=== PATIENT | male | born 1980 | race Caucasian/White ===

== ENCOUNTER 2019-10-28 13:01 | Inpatient (IN) | payer OTHER ==
[2019-10-28] MEDS ORDERED: Ondansetron 4 MG/2 ML SDV IVPUSH ONE (13:21)
--- NOTE | 2019-10-28 13:29 | EDM.PDOC ---
ED HPI GENERAL MEDICAL PROBLEM - General Chief Complaint: Abdominal Pain Stated Complaint: ABD PAIN Time Seen by Provider: 10/28/19 13:17 Source of Information: Reports: Patient History Limitations: Reports: No Limitations - History of Present Illness INITIAL COMMENTS - FREE TEXT/NARRATIVE: pt has been well until last nite when he developed marked diarrhea. During the nite h started to vomit and he now is not holding water down. . He has pain in his rt lower abdoman which he rates at a 7. He has been healthy until last nite. [place] with [place] and they have all been eating the same foods and no one else is sick. Onset: Other ( started last nite. ) Duration: Hour(s): Location: Reports: Abdomen, Other (pt has chilled a little. ) Quality: Reports: Other (pain is there all of the time. ) Lower Abdomen Pain Score (Numeric/FACES): 7 - Related Data Allergies Allergy/AdvReac Type Severity Reaction Status Date / Time Penicillins Allergy Cannot Verified 10/28/19 13:15 Remember Home Meds: Home Meds NK [No Known Home Meds] 10/28/19 [History] ED ROS GENERAL - Review of Systems Review Of Systems: See Below Constitutional: Reports: Weakness, Decreased Appetite HEENT: Reports: No Symptoms Respiratory: Reports: No Symptoms Cardiovascular: Reports: No Symptoms Endocrine: Reports: No Symptoms GI/Abdominal: Reports: Abdominal Pain, Other (pt has pain in the rt lower abdoman. ) : Reports: No Symptoms Musculoskeletal: Reports: No Symptoms Skin: Reports: No Symptoms ED EXAM, GI/ABD - Physical Exam Exam: See Below Text/Narrative:: pt arrived with pain the lower abdoman. He got sick last nite and had alot of eisodes of nonbloody diarrhea. He then started to vomit and at this point he is not holding any fluids down. He has been eating the same thing as his family and no one else is ill. Exam Limited By: No Limitations General Appearance: Alert, Anxious, Moderate Distress Ears: Normal TMs Nose: Normal Inspection Throat/Mouth: Normal Inspection Head: Atraumatic Neck: Normal Inspection Respiratory/Chest: No Respiratory Distress Cardiovascular: Regular Rate, Rhythm GI/Abdominal Exam: Tender ( Pt has tenderness without rigid guarding in the rt lower abdoman and suprapupic area. He has not had a fever. ), Other (Male) Exam: Deferred Rectal (Males) Exam: Deferred Back Exam: Normal Inspection Extremities: Normal Inspection Neurological: Alert, Oriented, Normal Cognition Course - Vital Signs Last Recorded V/S: Last Vital Signs Temp 36.8 C 10/28/19 13:13 Pulse 55 L 10/28/19 15:14 Resp 14 10/28/19 15:14 BP 102/55 L 10/28/19 15:14 Pulse Ox 100 10/28/19 15:14 - Orders/Labs/Meds Orders: Active Orders 24 hr Category Date Time Status Iopamidol [Isovue-300 (61%)] Med 10/28/19 14:30 Active 92 ml IV . DIRECTED Sodium Chloride 0.9% [Normal Saline] 1,000 ml Med 10/28/19 13:30 Active IV ASDIRECTED Sodium Chloride 0.9% [Normal Saline] 1,000 ml Med 10/28/19 14:00 Active IV ASDIRECTED Sodium Chloride 0.9% [Normal Saline] 70 ml Med 10/28/19 14:30 Active IV ASDIRECTED Medication Orders Sodium Chloride (Normal Saline) 1,000 mls @ 999 mls/hr IV ASDIRECTED EDWAR Last Admin: 10/28/19 13:41 Dose: 999 mls/hr Documented by: PREILOR Sodium Chloride (Normal Saline) 1,000 mls @ 999 mls/hr IV ASDIRECTED EDWAR Sodium Chloride (Normal Saline) 70 mls @ 3.5 mls/sec IV ASDIRECTED EDWAR Last Admin: 10/28/19 14:48 Dose: 3 mls/sec Documented by: THIERRY Iopamidol (Isovue-300 (61%)) 92 ml IV . DIRECTED EDWAR Last Admin: 10/28/19 14:48 Dose: 92 ml Documented by: THIERRY Labs: Laboratory Tests 10/28/19 10/28/19 10/28/19 Range/Units 13:36 13:36 14:44 WBC 15.3 H (4.5-11.0) K/uL RBC 5.45 (4.30-5.90) M/uL Hgb 16.3 H (12.0-15.0) g/dL Hct 46.9 (40.0-54.0) % MCV 86 (80-98) fL MCH 30 (27-31) pg MCHC 35 (32-36) % Plt Count 228 (150-400) K/uL Neut % (Auto) 91 H (36-66) % Lymph % (Auto) 4 L (24-44) % [place] % (Auto) 5 (2-6) % Eos % (Auto) 0 L (2-4) % Baso % (Auto) 0 (0-1) % Sodium 140 (140-148) mmol/L Potassium 4.0 (3.6-5.2) mmol/L Chloride 102 (100-108) mmol/L Carbon Dioxide 30 (21-32) mmol/L Anion Gap 8.3 (5.0-14.0) mmol/L BUN 14 (7-18) mg/dL Creatinine 0.9 (0.8-1.3) mg/dL Est Cr Clr Drug Dosing 95.06 mL/min Estimated GFR (MDRD) > 60 (>60) Glucose 144 H (74-106) mg/dL Calcium 8.8 (8.5-10.1) mg/dL Total Bilirubin 1.0 (0.2-1.0) mg/dL AST 21 (15-37) U/L ALT 35 (12-78) U/L Alkaline Phosphatase 51 (46-116) U/L C-Reactive Protein 0.90 H (0.0-0.3) mg/dL Total Protein 7.7 (6.4-8.2) g/dL Albumin 4.3 (3.4-5.0) g/dL Globulin 3.4 (2.3-3.5) g/dL Albumin/Globulin Ratio 1.3 (1.2-2.2) Urine Color [place] A (YELLOW) Urine Appearance Clear (CLEAR) Urine pH 8.0 (5.0-8.0) Ur Specific [place] 1.025 (1.008-1.030) Urine Protein Trace H (NEGATIVE) mg/dL Urine Glucose (UA) Negative (NEGATIVE) mg/dL Urine Ketones 40 H (NEGATIVE) mg/dL Urine Occult Blood Trace-intact H (NEGATIVE) Urine Nitrite Negative (NEGATIVE) Urine Bilirubin Negative (NEGATIVE) Urine Urobilinogen 0.2 (0.2-1.0) EU/dL Ur Leukocyte Esterase Negative (NEGATIVE) Urine RBC Not seen (0-5) Urine WBC Not seen (0-5) Ur Epithelial Cells Not seen Amorphous Sediment Many Urine Bacteria Not seen Urine Mucus Not seen Meds: Medications Generic Name Dose Route Start Last Admin Trade Name Freq PRN Reason Stop Dose Admin Sodium Chloride 1,000 mls @ 999 mls/hr 10/28/19 13:30 10/28/19 13:41 Normal Saline IV 999 mls/hr ASDIRECTED EDWAR Administration Sodium Chloride 1,000 mls @ 999 mls/hr 10/28/19 14:00 Normal Saline IV ASDIRECTED EDWAR Sodium Chloride 70 mls @ 3.5 mls/sec 10/28/19 14:30 10/28/19 14:48 Normal Saline IV 3 mls/sec ASDIRECTED EDWAR Administration Iopamidol 92 ml 10/28/19 14:30 10/28/19 14:48 Isovue-300 (61%) IV 92 ml . DIRECTED EDWAR Administration Discontinued Medications Generic Name Dose Route Start Last Admin Trade Name Freq PRN Reason Stop Dose Admin Hydromorphone HCl 0.5 mg 10/28/19 15:22 10/28/19 15:25 Dilaudid IVPUSH 10/28/19 15:23 0.5 mg ONETIME ONE Administration Ondansetron HCl 4 mg 10/28/19 13:21 10/28/19 13:42 Zofran IVPUSH 10/28/19 13:22 4 mg ONETIME ONE Administration Sodium Chloride 10 ml 10/28/19 14:27 10/28/19 14:48 Saline Flush FLUSH 10/28/19 14:28 10 ml ONETIME ONE Administration - Re-Assessments/Exams Free Text/Narrative Re-Assessment/Exam: 10/28/19 14:16 pt has a wbc of 15,000. He has a crp of .90. He has normal looking labs otherwise with mild dehydration. 10/28/19 15:29 pt had a cat scan of the abdoman which shows acute appendicitis. Departure - Departure Time of Disposition: 15:32 Disposition: Admitted As Inpatient 64 Condition: Fair Clinical Impression: Appendicitis - Discharge Information Referrals: PCP,None [Primary Care Provider] - Forms: ED Department Discharge Care Plan Goals: admit to Dr Magana Sepsis Event Note (ED) - Evaluation Sepsis Screening Result: No Definite Risk - Focused Exam Vital Signs: Vital Signs Temp Pulse Resp BP Pulse Ox 10/28/19 15:14 55 L 14 102/55 L 100 10/28/19 13:13 36.8 C 57 L 16 115/70 99 - My Orders Last 24 Hours: My Active Orders 10/28/19 13:30 Sodium Chloride 0.9% [Normal Saline] 1,000 ml IV ASDIRECTED 10/28/19 14:00 Sodium Chloride 0.9% [Normal Saline] 1,000 ml IV ASDIRECTED 10/28/19 14:30 Iopamidol [Isovue-300 (61%)] 92 ml IV . DIRECTED Sodium Chloride 0.9% [Normal Saline] 70 ml IV ASDIRECTED - Assessment/Plan Last 24 Hours: My Active Orders 10/28/19 13:30 Sodium Chloride 0.9% [Normal Saline] 1,000 ml IV ASDIRECTED 10/28/19 14:00 Sodium Chloride 0.9% [Normal Saline] 1,000 ml IV ASDIRECTED 10/28/19 14:30 Iopamidol [Isovue-300 (61%)] 92 ml IV . DIRECTED Sodium Chloride 0.9% [Normal Saline] 70 ml IV ASDIRECTED
[2019-10-28] MEDS ORDERED: Sodium Chloride 0.9% 1,000 ML IV SCH ×2 (13:30→14:00)
[2019-10-28] MEDS ORDERED: Sodium Chloride 0.9% 10 ML Syringe FLUSH ONE (14:27)
[2019-10-28] MEDS ORDERED: Iopamidol 612 MG/ML 100 ML Bottle IV SCH (14:30)
--- NOTE | 2019-10-28 15:18 | CRLCT ---
HISTORY: Right lower abdominal pain. COMPARISON: None. TECHNIQUE: Axial images were obtained through the abdomen and pelvis following 92 cc of Isovue-300 intravenous contrast. FINDINGS: 3 mm nodule lower lobe image 9 series 2. The liver, spleen, pancreas, gallbladder, adrenal glands and kidneys are within normal. The appendix is dilated to 12 mm fluid filled with wall hyper enhancement consistent with acute appendicitis. There are least 2 appendicoliths. Small amount of fluid and inflammatory stranding around the appendix. No evidence for abscess. No bowel obstruction. The bones within normal. IMPRESSION: Acute appendicitis. 3 mm left lower lobe pulmonary nodule. Please note that all CT scans at this facility use dose modulation, iterative reconstruction, and/or weight-based dosing when appropriate to reduce radiation dose to as low as reasonably achievable. Dictated by Jonelle Freitas MD @ Oct 28 2019 3:18PM Signed by Dr. Jonelle Freitas @ Oct 28 2019 3:18PM
[2019-10-28] MEDS ORDERED: HYDROmorphone 0.5 MG/0.5 ML Syringe IVPUSH ONE (15:22)
[2019-10-28] MEDS: Ertapenem 1 GM in Sodium Chloride 0.9% 100 ML IV SCH (15:56)
[2019-10-28] MEDS ORDERED: Ondansetron 4 MG/2 ML SDV IVPUSH PRN (16:25)
[2019-10-28] MEDS ORDERED: Promethazine 25 MG/ML SDV IV PRN (16:28)
[2019-10-28] MEDS ORDERED: diphenhydrAMINE 50 MG/ML SDV IV PRN (16:29)
[2019-10-28] MEDS ORDERED: diphenhydrAMINE 25 MG Cap PO PRN (16:30)
[2019-10-28] MEDS ORDERED: Scopolamine 1.5 MG Transdermal Patch TOP SCH (16:30)
[2019-10-28] MEDS ORDERED: Nicotine 14 MG/24 Hr Patch TRDERM PRN (16:31)
[2019-10-28] MEDS ORDERED: fentaNYL 100 MCG/2 ML SDV IV PRN (16:34)
[2019-10-28] MEDS: Morphine 4 MG/ML Syringe IV PRN ×3 (16:57→21:41)
[2019-10-28] MEDS: Sodium Chloride 0.9% 1,000 ML IV SCH (18:08)
[2019-10-29] MEDS: Morphine 4 MG/ML Syringe IV PRN (01:55)
[2019-10-29] MEDS: Sodium Chloride 0.9% 1,000 ML IV SCH (01:59)
[2019-10-29] MEDS ORDERED: Bupivacaine 0.5%/EPINEPHrine 1:200,000 50 ML MDV ONE (09:10)
[2019-10-29] MEDS ORDERED: fentaNYL 250 MCG/5 ML SDV ONE (09:33)
[2019-10-29] MEDS ORDERED: Dexamethasone 4 MG/ML SDV ONE (09:34)
[2019-10-29] MEDS ORDERED: Ondansetron 4 MG/2 ML SDV ONE (09:34)
[2019-10-29] MEDS ORDERED: Rocuronium 50 MG/5 ML Vial ONE (09:34)
[2019-10-29] MEDS ORDERED: Propofol 200 MG/20 ML SDV ONE (09:34)
[2019-10-29] MEDS ORDERED: Glycopyrrolate 0.2 MG/ML 5 ML MDV ONE (09:34)
[2019-10-29] MEDS ORDERED: Neostigmine Methylsulfate 1 MG/ML 5 ML Syringe ONE (09:34)
[2019-10-29] MEDS ORDERED: Lactated Ringers 1,000 ML ONE (10:09)
--- NOTE | 2019-10-29 10:53 | PN ---
DATE OF SERVICE: 10/29/2019 SUBJECTIVE: The patient is doing well. Pain has improved. No nausea or vomiting. OBJECTIVE: VITAL SIGNS: Stable. He is afebrile. ABDOMEN: No rebound. No guarding. ASSESSMENT: Appendicitis. PLAN: The patient will be taken to the operating room today for laparoscopic appendectomy. We discussed risks, benefits, alternatives, limitations including, but not limited to infection, bleeding, injury to abdominal structures, and other risks not listed here. Sher Magana MD /[id number]
--- NOTE | 2019-10-29 11:12 | CONS ---
DATE OF SERVICE: 10/28/2019 REFERRING PHYSICIAN: CONSULTING PHYSICIAN: Sher Magana MD REASON FOR CONSULTATION: Abdominal pain. HISTORY OF PRESENT ILLNESS: This is a pleasant 38-year-old male who is visiting from the area who developed diarrhea, then subsequently nausea and vomiting, and then developed periumbilical pain which turned to the right lower quadrant which is 6/10 to 7/10, modified by acute onset. PAST MEDICAL HISTORY: No previous abdominal surgery. SOCIAL HISTORY: He does not smoke. FAMILY HISTORY: Noncontributory. REVIEW OF SYSTEMS: GENERAL: No specific changes. HEENT: No abnormalities. CARDIOVASCULAR: No history of myocardial infarction. RESPIRATORY: No history of shortness of breath. GASTROINTESTINAL: As above. GENITOURINARY: No abnormalities. MUSCULOSKELETAL: No abnormalities. SKIN: No abnormalities. The remainder of review of systems are reviewed and is negative. PHYSICAL EXAMINATION: VITAL SIGNS: Temperature 97.3, blood pressure 100/44, pulse 52, respirations 16, 96% on room air. GENERAL: The patient is resting comfortably. HEENT: Pupils are equal. NECK: Supple. LUNGS: Clear. CARDIOVASCULAR: Regular rhythm and rate. ABDOMEN: Pain with palpation in right lower quadrant. No rebound. No guarding. EXTREMITIES: Full range of motion. NEUROLOGIC: Oriented x3. PSYCHIATRIC: No gross depression. LABORATORY RESULTS: Show white blood cell count of 14.3. IMAGING: CT scan which I did review which shows acute appendicitis. ASSESSMENT: Appendicitis. PLAN: The patient will be admitted for IV antibiotics. He will undergo laparoscopic appendectomy in the a.m. We discussed risks, benefits, alternatives, and limitations including, but not limited to infection, bleeding, injury to abdominal structures, possibility of open surgery and other risks not listed here. The patient understands these risks and wishes to proceed. Sher Magana MD /[id number]
[2019-10-29] MEDS: Ibuprofen 600 MG Tab PO PRN (13:30)
--- NOTE | 2019-10-29 14:49 | OR ---
DATE OF PROCEDURE: 10/29/2019 SURGEON: Sher Magana MD PROCEDURES: 1. Bilateral transversus abdominis plane blocks. 2. Rectus sheath blocks bilaterally. COMPLICATIONS: None. PRESS BRAKE OPERATOR: None. RISKS: Risks, benefits, alternatives, and limitations including, but not limited to infection, bleeding, and injury to abdominal structures were explained to the patient, who wished to proceed. PROCEDURE IN DETAIL: The patient was placed in supine position. The solution was calculated by pharmacy, and this will be split into 4 equal aliquots. The right transversus plane was addressed first. 25% of the solution was injected in this location, then followed by the right rectus sheath, then the left rectus sheath, then the left transversus plane. These were all under direct visualization. No evidence of abdominal entry was noted. No other abnormalities were noted. The patient tolerated the procedure well. Sher Magana MD /[id number]
--- NOTE | 2019-10-29 15:16 | OR ---
DATE OF PROCEDURE: 10/29/2019 SURGEON: Sher Magana MD PROCEDURE: Laparoscopic appendectomy. PREOPERATIVE DIAGNOSIS: Appendicitis. POSTOPERATIVE DIAGNOSIS: Appendicitis. RISKS: Risks, benefits, alternatives, and limitations including, but not limited to infection, bleeding, and injury to abdominal structures were explained to the patient, who wished to proceed. PROCEDURE IN DETAIL: The patient was placed in supine position. A supraumbilical curvilinear incision was made. A Veress needle was used to enter the abdomen without abnormality. A drop test was performed without abnormality. The abdomen was subsequently insufflated. This was followed by 2 additional 5 mm ports under direct visualization. The appendix was identified. It was non-perforated. This was mobilized and transected using a galloway load stapler. No abnormal bleeding was noted after removal. Abdominal cultures were performed. This was delivered through the supraumbilical port using a bag. The abdomen was irrigated with 2 L of irrigation. The liquid was removed. The air was removed. The wounds were closed with 3-0 Vicryl and 4-0 Vicryl in interrupted running fashion. Dermabond was applied. Sher Magana MD /[id number]
[2019-10-29] MEDS: Ertapenem 1 GM in Sodium Chloride 0.9% 100 ML IV SCH (15:24)
[2019-10-29] MEDS: Acetaminophen/HYDROcodone 325-5 MG Tab PO PRN ×2 (15:35→19:28)
[2019-10-30] MEDS: Ibuprofen 600 MG Tab PO PRN ×2 (08:30→14:30)
[2019-10-30] MEDS: Acetaminophen/HYDROcodone 325-5 MG Tab PO PRN (13:17)
[2019-10-30] MEDS ORDERED: Ertapenem 1 GM in Sodium Chloride 0.9% 100 ML IV ONE (14:00)
== END 2019-10-30 12:40 | disposition home or self-care (01) | DRG 343 ==
LOC: JP.ED 13:01 → JP.MS 15:43 → JP.ED 16:10
PROVIDERS: ADMIT Surgery; ATTEND Surgery
PROC: 0DTJ4ZZ Resection of Appendix, Percutaneous Endoscopic Approach (ICD-10-PCS; principal; 2019-10-29)
DX: K35.80 Unspecified acute appendicitis (principal); Z88.0 Allergy status to penicillin; Z11.59 Encounter for screening for other viral diseases
CPT/HCPCS: 36415; 74177; 80048; 80053; 81001; 85025; 85027; 86140; 87070; 87075; 87205; 88304; 96361; 96374; 96375; 99285-25; A9270-GY; J0171; J1100; J1170; J1335; J2270; J2405; J2704; J2710; J2795; J3010; J3490; J7030; J7050; J7120; Q9967; U0002